=== PATIENT | male | born 1955 | race Caucasian/White ===

== ENCOUNTER 2017-08-19 10:32 | Emergency (ER) | payer OTHER ==
[~2017-08-19] VITALS: Ht 170.2 cm; Wt 79.5 kg
[~2017-08-19 10:32] MED LIST: ASPI81 PO; LEVE500 PO; LISI10TA PO; LORTA5 PO; MEVA40TA6 PO; NIFE1TAB86 PO
[2017-08-19 10:33] VITALS: BP 175/92; PULSE 91; RESP 14; TEMP 98.9; O2SAT 95
== END 2017-08-19 10:35 | disposition left against medical advice (07) ==
LOC: NED 10:32
DX: Z53.21 Procedure and treatment not carried out due to patient leaving prior to being seen by health care provider (principal)
CPT/HCPCS: 99281